=== PATIENT | female | born 1995 | race Caucasian/White ===

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

== ENCOUNTER 2017-04-18 12:53 | Emergency (ER) | payer BC, OTHER ==
[~2017-04-18] VITALS: Ht 170.2 cm; Wt 60.2 kg
[2017-04-18 12:58] VITALS: TEMP 36.6; Ht 170.2 cm; Wt 60.2 kg
[2017-04-18] MEDS ORDERED: ALBUT/IPRATROP 3MG/0.5MG NEB 3 ML VIAL INH ONE (13:30)
[2017-04-18] MEDS ORDERED: PRED20TA2 PO (14:53)
[2017-04-18 14:54] VITALS: BP 102/61; PULSE 81; O2SAT 99
--- NOTE | 2017-04-18 15:52 | EMERGENCY ROOM VISIT NOTE ---
History First contact with patient: 13:16 Chief Complaint: ALLERGIC REACTION Stated Complaint: ALLERGIC REACTION TO PEANUTS; TROUBLE BREATHING Nursing Triage Summary: patient with peanut allergy and ate some chex mix started last night with sneezing and coughing and tight chest took some benadryl and inhaler and then this am her asthma contiues to be flaired up History of Present Illness The patient is a 21 year old female who presents to the Emergency Room with complaints of allergic reaction vs asthma exacerbation that began last night. The patient states that she ate Chex mix that had peanuts in it, and she is allergic to peanuts. She began having some chest tightness and coughing, and took her inhaler and Benadryl. The patient felt improved after this last evening, but states today she has had continued sneezing, coughing, and chest tightness. She does not feel discomfort in her throat. No abdominal pain, nausea, or vomiting. She denies chance of . She does have an EpiPen at home, but did not feel the need to use this. She rates her overall discomfort a 5/10. She does not report rash. Review of Systems More than 10 systems were reviewed and otherwise negative with the exception of history of present illness. Past Medical/Surgical History History of asthma Family History No pertinent family history Social History Smoking Status: Never Smoker Occupation Status: [employer] student Current/Historical Medications Scheduled Prednisone (Prednisone Tab), 2 TAB PO DAILY Physical Exam Vital Signs Date Time Temp Pulse Resp B/P (MAP) Pulse Ox O2 Delivery O2 Flow Rate FiO2 04/18/17 14:54 81 18 102/61 99 Room Air 04/18/17 12:58 36.6 110 20 125/77 97 Room Air Physical Exam VITALS: Vitals are noted on the nurse's note and reviewed by myself. Vital signs stable. GENERAL: Well-developed, well-nourished, white female, who is in no acute distress and resting comfortably. Patient is cooperative with the examination. EYES: Pupils equal round and reactive to light and accommodation. Conjunctivae without injection, sclerae without icterus. Extraocular movements intact. NOSE: Patent, turbinates without inflammation or discharge. MOUTH: Mucous membranes moist. Tonsils are not enlarged. Pharynx without erythema, blood, or exudate. Uvula midline. Airway patent. NECK: Supple without nuchal rigidity. No lymphadenopathy. No thyromegaly. Cervical spine is nontender. HEART: Regular rate and rhythm without murmurs gallops or rubs. LUNGS: Clear to auscultation bilaterally without wheezes, rales or rhonchi. No retractions or accessory muscle use. ABDOMEN: Positive normal bowel sounds x 4. Soft, nontender, without masses or organomegaly. No guarding or rebound tenderness. SKIN: The skin was without rashes, erythema, edema, or bruising. Capillary reflex less than 2 seconds. Medical Decision & Procedures Medications Administered Medications (Trade) Dose Ordered Sig/Mart Route Start Time Stop Time Status Last Admin Dose Admin Prednisone (PredniSONE TAB) 40 mg NOW STAT PO 04/18/17 13:24 04/18/17 13:25 DC 04/18/17 13:27 40 MG Albuterol/ Ipratropium (Duoneb) 3 ml NOW ONCE INH 04/18/17 13:30 04/18/17 13:31 DC 04/18/17 13:27 3 ML ED Course Physical exam and history were performed. Nursing notes, EMR, and Medication List were personally reviewed. Patient appears to have a peanut allergy and is now having reports of asthma/ allergic reaction symptoms since last night. She evidently used her inhaler just before coming to the department, and her lungs are clear on auscultation at this time. She does not have significant rash or lesions. No evidence of mucous membrane involvement. The patient was treated here in the department with oral prednisone and a DuoNeb. She was monitored for nearly 2 hours and did feel significant better after steroids and the breathing treatment. I feel the patient is stable for discharge home and will give her a continuation course of prednisone. She does have an inhaler at home as well as several epi- pens if needed. The patient was asked to follow with her primary care physician in the next few days for recheck. She was certainly invited back to the ER with any new, worsening, or concerning symptoms. The chart was completed utilizing [employer] Voice Recognition Software. Grammatical errors, random word insertions, pronoun errors, and incomplete sentences are an occasional consequence of this system due to software limitations, ambient noise, and hardware issues. Any formal questions or concerns about the content, text, or information contained within the body of this dictation should be directly addressed to the provider for clarification. . Medical Decision Differential diagnosis: Etiologies such as allergic reaction, anaphylaxis, urticaria, Sue-Murtaza syndrome, toxic epidermal necrolysis, erythema multiforme, cellulitis, as well as others were entertained. Medication Reconcilliation Current Medication List: was personally reviewed by me Blood Pressure Screening Patient's blood pressure: Normal blood pressure Impression Primary Impression: Allergic reaction Departure Information Dispostion Home / Self-Care Condition GOOD Prescriptions Prednisone (Prednisone Tab) 20 Mg Tab 2 TAB PO DAILY for 5 Days, #10 TAB Prov: Jalen Raymond PA-C 04/18/17 Referrals Diana Colbert (PCP) Forms HOME CARE DOCUMENTATION FORM, IMPORTANT VISIT INFORMATION Patient Instructions My [facility] Additional Instructions You were seen and evaluated today on an emergency basis only. This is not a substitute for, or an effort to provide, complete comprehensive medical care. It is not possible to recognize and treat all injuries or illnesses in a single emergency department visit. For this reason it is recommended that you followup with your primary care physician with any ongoing or persistent symptoms. Take prednisone daily for the next 5 days as prescribed. You may use [id number] Benadryl 25 mg every 6 hours as needed for additional relief of symptoms. You may use her EpiPen at home if symptoms significantly worsen. If you ever use your EpiPen please immediately seek additional medical attention. You are welcome to return to the emergency department anytime with new, worsening, or concerning symptoms.
== END 2017-04-18 15:07 | disposition home or self-care (01) ==
LOC: C.EDB 12:56 → C.EDA 15:07
DX: T78.01XA Anaphylactic reaction due to peanuts, initial encounter (principal); X58.XXXA Exposure to other specified factors, initial encounter

== ENCOUNTER 2017-08-14 07:59 | Emergency (ER) | payer BC ==
[~2017-08-14] VITALS: Ht 170.2 cm; Wt 59.0 kg
[2017-08-14 08:11] VITALS: TEMP 36.6; Ht 170.2 cm; Wt 59.0 kg
--- NOTE | 2017-08-14 09:20 | DIAGNOSTIC IMAGING REPORT ---
THORACIC SPINE 3 VIEWS HISTORY: Back pain. t6-t7 pain COMPARISON: None. FINDINGS: There is no fracture. No subluxation. Disc spaces are preserved. IMPRESSION: No fracture or subluxation within the thoracic spine. Electronically signed by: Roge Lyons M.D. 08/14/2017 9:19 AM Dictated Date/Time: 08/14/2017 9:16 AM
[2017-08-14] MEDS ORDERED: CARI350T28 PO (09:51)
[2017-08-14 10:20] VITALS: BP 109/66; PULSE 65; O2SAT 100
--- NOTE | 2017-08-14 18:06 | EMERGENCY ROOM VISIT NOTE ---
History First contact with patient: 08:33 Chief Complaint: BACK PAIN Stated Complaint: UPPER BACK PAIN,PINCHING FEELING History of Present Illness The patient is a 21 year old white female who presents to the Emergency Room with complaints of left upper back pain that has been present for almost a year. It has become worse over the last day. She describes it as a pinching feeling. There is some urine imaged type pain on the right side but it is much less intense. No specific injury. She denies any heavy lifting. No trauma. It does not radiate to the arm. She does note motion of the left arm does increase the back pain. No shortness of breath. A female friend accompanies her today. No treatment yet. No other complaints. Review of Systems REVIEW OF SYSTEM: HEENT: No dizziness, visual problems, hearing loss, or tinnitus. There is no difficulty swallowing and no oral lesions are present. PULMONARY: No cough, shortness of breath, sputum production or hemoptysis. CARDIOVASCULAR: No chest pain, palpitations, shortness of breath or peripheral edema. GASTROINTESTINAL: No diarrhea, constipation, nausea, vomiting, or abdominal pain. GENITOURINARY: No dysuria, frequency, urgency or nocturia. NEUROLOGIC: No weakness, muscle tenderness, epilepsy or history of neurological problems. MUSCULOSKELETAL: No history of joint tenderness/swelling. No history of arthritis or arthralgias. SKIN: No rashes or lesions. PSYCHIATRIC: No history of depression or mental illness. ENDOCRINE: No history of diabetes, thyroid disorders, or abnormal hair growth. Past Medical/Surgical History Previous surgeries: None. Medical history: Unremarkable. Family History Noncontributory. Social History Smoking Status: Never Smoker Smokeless Tobacco Use: No Alcohol Use: none Drug Use: none Marital Status: single Housing Status: lives with roommate Occupation Status: [employer] 1[employer]3 [employer] student Current/Historical Medications Scheduled PRN Carisoprodol (Soma), 350 MG PO Q6H PRN for Pain Physical Exam Vital Signs Date Time Temp Pulse Resp B/P (MAP) Pulse Ox O2 Delivery O2 Flow Rate FiO2 08/14/17 10:20 65 16 109/66 100 08/14/17 08:11 36.6 95 18 109/81 100 Room Air Physical Exam Gen.: Well-developed, well-nourished, thin young female, in no acute distress. Sitting on a bed. Alert and oriented. Obvious discomfort. Skin:Warm and dry with good turgor. No rashes or lesions. No ecchymosis or erythema. The patient is not diaphoretic. No abrasions. Musculoskeletal: Back evaluation reveals no obvious asymmetry or deformity. She has no visible atrophy. No winging of the scapula. No palpable mild rotation of the spine. She has focal discomfort with palpation over the costovertebral junction at the T6 and T7 level. She also has discomfort with palpation over her left rhomboid at this level. No discomfort with palpation over the posterior rotator cuff musculature. Mild discomfort with palpation over the trapezius. No palpable spasm in the trapezius. She does have palpable spasm in the paraspinal musculature around T6. She describes some soreness on the right side, but no palpable spasm and the pain is not as intense. She has full range of motion of both shoulders including overhead reach. No increase in pain with Viramontes testing or near impingement testing. She does get an increase in her left rhomboid discomfort with shoulder retraction. It feels better with shoulder protraction. It is also increased with shoulder elevation. She also gets increased discomfort with left side bending and better with right side bending. Rotation of the spine causes a mild increase in discomfort. Neurologic: Gross sensation is intact across the upper extremities and back by soft touch. Medical Decision & Procedures ER Provider Diagnostic Interpretation: Radiographic Imaging obtained today of the thoracic spine was reviewed by me and read by radiology. No evidence of fracture or malrotation. ED Course Patient was educated regarding today's findings. Conservative care measures were discussed. Imaging was obtained. She should follow-up with [facility] for a physical therapy evaluation. Ice or warm moist compresses applied to the area as desired for comfort. Tylenol and Motrin every 6 hours as needed for pain control. Prescription was provided for Soma 350 mg to be used every 6 hours as needed for more significant pain or spasm. Driving precautions were given. Return to the ED for any acute changes. Medical Decision Possibility of costovertebral dysfunction, facet syndrome, muscle strain, and nerve root impingement were considered. Medication Reconcilliation Current Medication List: was personally reviewed by me Blood Pressure Screening Patient's blood pressure: Normal blood pressure Impression Primary Impression: Strain of thoracic paraspinal muscles excluding T1 and T2 levels Departure Information Prescriptions Carisoprodol (Soma) 350 Mg Tab 350 MG PO Q6H Y for Pain, #12 TAB Prov: Sefchick, Ramirez D.,P.A. 08/14/17 Referrals No Doctor, Assigned (PCP) Patient Instructions [facility] Problem Qualifiers Primary Impression: Strain of thoracic paraspinal muscles excluding T1 and T2 levels Encounter type: initial encounter Qualified Codes: S29.012A - Strain of muscle and tendon of back wall of thorax, initial encounter
== END 2017-08-14 10:20 | disposition home or self-care (01) ==
LOC: C.EDB 08:01 → C.EDA 10:20
DX: S29.012A Strain of muscle and tendon of back wall of thorax, initial encounter (principal); X50.9XXA Other and unspecified overexertion or strenuous movements or postures, initial encounter